=== PATIENT | female | born 1950 | race Caucasian/White ===

== ENCOUNTER 2023-02-18 06:00 | Day surgery (SDC) | payer OTHER ==
[~2023-02-18] VITALS: Ht 157.5 cm; Wt 57.6 kg
[~2023-02-18 06:00] MED LIST: LIVALO4 MG PO; NORVASC2.5 M1 PO; TIROSINT25 MCG PO; TOPROL XL100 M1 PO
== END 2023-02-18 15:40 | disposition home or self-care (01) ==
LOC: CIR.AMB 06:00
PROVIDERS: ATTEND Surgery Surgery of the Hand
DX: D16.11 Benign neoplasm of short bones of right upper limb (principal); Z20.822 Contact with and (suspected) exposure to COVID-19